=== PATIENT | male | born 1955 | race Two or more races ===

== ENCOUNTER 2023-01-25 15:42 | Emergency (ER) | payer MEDICARE, OTHER ==
[2023-01-25] MEDS ORDERED: Ondansetron 4 MG/2 ML SDV IVPUSH ONE (16:34)
[2023-01-25] MEDS ORDERED: Sodium Chloride 0.9% 10 ML Syringe FLUSH PRN (16:34)
[2023-01-25 16:35] LABS: BASOPHILS PERCENT AUTO 0.2 % (0.3-3.8); EOSINOPHILS PERCENT AUTO 0.2 % (0.1-6.8); HEMATOCRIT 36.1 % (38.3-50.1); LYMPHOCYTES ABSOLUTE AUTO 0.7 x10-3/uL (0.5-4.5); LYMPHOCYTES PERCENT AUTO 4.8 % (15.8-45.3); MEAN CORPUSCULAR HEMOGLOBIN 28.8 pg (27.0-33.3); MEAN CORPUSCULAR HGB CONC 33.4 g/dL (28.7-35.3); MEAN CORPUSCULAR VOLUME 86.3 fL (80.8-98.7); MONOCYTES ABSOLUTE AUTO 1.4 x10-3/uL (0.0-1.2); MONOCYTES PERCENT AUTO 9.5 % (5.5-15.2); NEUTROPHILS ABSOLUTE AUTO 12.4 x10-3/uL (1.7-6.9); NEUTROPHILS PERCENT AUTO 85.3 % (40.3-71.8); PLATELET COUNT,PLT 207 x10(3)uL (117-477); RED BLOOD CELL COUNT 4.18 x10(6)uL (3.90-5.90); RED CELL DISTRIBUTION WIDTH 13.4 % (12.4-15.0); WHITE BLOOD CELL COUNT,WBC 14.5 x10-3/uL (3.2-10.1)
[2023-01-25 16:43] LABS: BLOOD UREA NITROGEN,BUN 25 mg/dL (7-18); BUN/CREATININE RATIO 16.7 (9-20); CALCIUM 8.5 mg/dL (8.6-10.2); CARBON DIOXIDE,CO2 28 mmol/L (21-32); CHLORIDE,CL 93 mmol/L (100-110); CREATININE 1.5 mg/dL (0.70-1.30); ESTIMATED GFR 50 mL/min (>60); GLUCOSE RANDOM 222 mg/dL (80-116); POTASSIUM,K 3.4 mmol/L (3.5-5.3); SODIUM,NA 129 mmol/L (135-145)
[2023-01-25] MEDS ORDERED: Sodium Chloride 0.9% 1,000 ML IV SCH (16:45)
[2023-01-25 16:49] LABS: A/G RATIO 0.5; ALANINE AMINOTRANSFERASE,ALT 36 U/L (12-36); ALBUMIN 2.4 g/dL (3.2-4.6); ALKALINE PHOSPHATASE 239 IU/L (56-112); AMYLASE 23 U/L (25-115); ASPARTATE AMNIOTRANSFERASE,AST 63 IU/L (5-25); BILIRUBIN TOTAL 5.4 mg/dL (0.1-1.3); PROTEIN TOTAL,TP 7.7 g/dL (6.0-8.0)
[2023-01-25] MEDS ORDERED: Iopamidol 755 Mg/ML 100 ML Bottle IV ONE (17:39)
== END 2023-01-25 20:18 ==
LOC: FB.ED 15:42
DX: K80.20 Calculus of gallbladder without cholecystitis without obstruction (principal); N17.9 Acute kidney failure, unspecified; I11.0 Hypertensive heart disease with heart failure; I50.9 Heart failure, unspecified; E11.9 Type 2 diabetes mellitus without complications; E86.0 Dehydration; E87.6 Hypokalemia; E87.1 Hypo-osmolality and hyponatremia; E80.6 Other disorders of bilirubin metabolism
CPT/HCPCS: 36415; 74177; 80053; 82150; 83690; 85025; 96361; 96374; 99285; J2405; J7030; Q9967